=== PATIENT | female | born 2000 | race Asian ===

== ENCOUNTER 2023-07-23 09:10 | Emergency (ER) | payer OTHER, SELFPAY ==
[2023-07-23 09:29] VITALS: BP 118/69; PULSE 85; RESP 18; TEMP 36.7; O2SAT 99; BMI 25.5
--- NOTE | 2023-07-23 13:48 | ED_ITS ---
HPI - Wound/Laceration General Chief Complaint: Wound/Laceration Stated Complaint: l index finger laceration at home Time Seen by Provider: 07/23/23 13:46 Source: patient Mode of arrival: ambulatory Limitations: no limitations History of Present Illness HPI narrative: This is a 23-year-old female presenting the laceration to left index finger status post cutting avocado this morning. No intent of self-harm. Denies numbness, tingling. Up-to-date on tetanus shot. Related Data Allergies Allergy/AdvReac Type Severity Reaction Status Date / Time No Known Allergies Allergy Verified 07/23/23 09:32 Review of Systems Review of Systems: Constitutional : No Fever, No Chills, Cardiovascular : No Chest Pain, No SOB Respiratory : No Dyspnea Gastrointestinal : No abdominal pain Musculoskeletal : No Joint Swelling Skin : No rash, positive skin laceration Neuro : No Weakness, No Numbness Psych : No SI/HI Yes all other systems are reviewed and are negative COUNTS INCLUDE 234 BEDS AT THE [facility] Past Medical History Attestation statement: The following information was validated with the patient. Source: old records reviewed and nursing notes reviewed Social History Social History Advance Directives: No Advance Directives Information Provided: Yes Physical Exam Vital Signs: Vital Signs: Last Vital Signs Temp 98.1 F 07/23/23 09:29 Pulse 85 07/23/23 09:29 Resp 18 07/23/23 09:29 BP 118/69 07/23/23 09:29 Pulse Ox 99 07/23/23 09:29 O2 Del Method Room Air 07/23/23 09:29 BMI result Body Mass Index 25.5 vss Appearance: Alert.? Oriented X3.? No acute distress.? Head: Normocephalic, atraumatic, no step-offs or deformities Eyes: Pupils equal, round and reactive to light.? CVS: Normal heart rate and rhythm.? Pulses normal.? Respiratory: No respiratory distress.? Breath sounds normal.? Abdomen: Soft and nontender.? Skin: Skin warm and dry.? Normal skin color.? Normal skin turgor.?2cm superifical laceration to the palmar aspect of the L index finger between the PIP and DIP joint. No active bleeding, no purulent drainage, no surrounding erythema. Extremities: No lower extremity edema.? No calf ttp. 5/5 strength to bilateral upper and lower extremities. +Radial and ulnar pulses b/l, full ROM of all four extremities except limited ROM of the left index finger secondary to pain. Sensation grossly intact, capillary refill <2s in all digits Neuro: Oriented X 3.? No motor deficit.? No sensory deficit. CN 2-12 intact Course Reevaluation(s) Reevaluation #1: Dermabond applied. Patient anxious but tolerated procedure well. Educated patient on diagnosis and treatment plan, answered all question, patient verbalizes understanding. At this time patient will be discharged home, advised to return with new or worsening symptoms. Educated on worrisome signs and symptoms and when to return. At this time I feel comfortable discharge home. Medical Decision Making Medical Decision Making [facility] Narrative: 1347 23-year-old female presents with lack to left index finger status post cutting avocado this morning physical exam significant for 2cm superifical laceration to the palmar aspect of the L index finger between the PIP and DIP joint. No active bleeding, no purulent drainage, no surrounding erythema. +Radial and ulnar pulses b/l, full ROM of all four extremities except limited ROM of the left index finger secondary to pain. Sensation grossly intact, capillary refill <2s in all digits likely simple lack, unlikely ligament or tendon injury. No signs of fracture, dislocation, threat to limb or neurovascular compromise plan, clean and closure with dermabond and finger splint for comfort and immobilization during healing Differential Diagnosis Differential Diagnoses: The differential diagnosis associated with the presentation includes likely simple lac, unlikely ligament or tendon injury. No signs of fracture, dislocation, threat to limb or neurovascular compromise Critical Care Time Critical Care Time Critical Care Time: No Discharge Plan Discharge Clinical Impression: Laceration Patient Disposition: Home, Self-Care Additional Instructions: Take your medications as prescribed. If you were prescribed antibiotics today, it is important that you take your medication to their entirety, do not skip any doses, do not finish them early. Follow-up with your primary care provider this week. Return to the emergency department with new or worsening symptoms. Such as fevers, chills, chest pain, shortness of breath, nausea, vomiting, dizziness, headache, vision changes, lethargy In case of emergency call 911 allow the glue to fall off. Referrals: Physician,None [Primary Care Provider] - 2 days Stand Alone Forms: Work/School Release
== END 2023-07-23 14:26 | disposition home or self-care (01) ==
PROVIDERS: Emergency Provider Student in an Organized Health Care Education/Training Program
DX: S61.211A Laceration without foreign body of left index finger without damage to nail, initial encounter (principal); W26.0XXA Contact with knife, initial encounter; Y93.9 Activity, unspecified; Y92.9 Unspecified place or not applicable; Y99.9 Unspecified external cause status
CPT/HCPCS: 29130; 99282; 99284